=== PATIENT | female | born 1985 | race Asian ===

== ENCOUNTER 2024-03-05 10:52 | Emergency (ER) | payer OTHER ==
[2024-03-05 11:22] VITALS: BP 155/103; PULSE 98; RESP 18; TEMP 98.4; BMI 30.6
[2024-03-05 12:14] LABS: INR 0.94 (0.83-1.09); PROTHROMBIN TIME (PATIENT) 10.7 SEC (9.7-13.0)
[2024-03-05] MEDS ORDERED: ACETAMINOPHEN 500 MG TABLET (FP) ONE (12:23)
[2024-03-05 12:25] LABS: ALBUMIN 4.5 g/dl (3.4-5.0); ALK PHOS 85 U/L (45-117); ANION GAP 7 mmol/L (4-13); BILIRUBIN,TOTAL 0.4 mg/dl (0.2-1); CALCIUM 11.1 mg/dl (8.5-10.1); CHLORIDE 101 mmol/L (98-107); CO2 28 mmol/L (21-32); CREATININE 0.7 mg/dl (0.6-1.3); GLUCOSE,RANDOM 196 mg/dl (74-106); MAGNESIUM 2.1 mg/dL (1.8-2.4); PHOSPHOROUS 3.4 (2.5-4.9); POTASSIUM 4.3 mmol/L (3.5-5.1); SGOT/AST 12 U/L (15-37); SGPT/ALT 19 U/L (7-52); SODIUM 136 mmol/L (136-145); TOT PROT 7.6 g/dl (6.4-8.2)
[2024-03-05 12:27] LABS: HEMATOCRIT 35.4 % (32.4-45.2); HEMOGLOBIN 11.2 G/dL (10.7-15.3); MCH 25.3 pg (25.7-33.7); MCHC 31.6 g/dl (32.0-36.0); MEAN CELL VOLUME 80.2 fl (80-96); MEAN PLT VOLUME 9.3 fl (7.5-11.1); PLATELET COUNT 271.8 10^3/uL (134-434); RBC 4.42 10^6/uL (3.60-5.2); RDW 15.1 % (11.6-15.6); WHITE BLOOD COUNT 7.9 10^3/uL (4.0-10.8)
[2024-03-05] MEDS: ACETAMINOPHEN 500 MG TABLET (FP) PO ONE (12:35)
[2024-03-05 12:54] LABS: EPITHELIAL CELLS 0-5 /hpf; URINE HYALINE CAST 0-1 /lpf
[2024-03-05 13:14] LABS: PLATELET ESTIMATE ADEQUATE
[2024-03-05 14:08] LABS: IRON SERUM 49 ug/dL (50-175)
== END 2024-03-05 14:53 | disposition home or self-care (01) ==
LOC: FER 10:52
DX: N92.4 Excessive bleeding in the premenopausal period (principal); R10.30 Lower abdominal pain, unspecified
CPT/HCPCS: 36415; 76830-TC; 80053; 81003; 81015; 83540; 83735; 84100; 84703; 85027; 85610; 85730; 86850; 86900; 86901; 87086; 99284-25

== ENCOUNTER 2025-02-14 16:42 | Inpatient (IN) | payer OTHER ==
[2025-02-14 17:00] VITALS: BMI 31.8
[2025-02-14] MEDS ORDERED: ACETAMINOPHEN 325 MG TABLET (FP) ONE (17:55)
[2025-02-14] MEDS: ACETAMINOPHEN 500 MG TABLET (FP) PO ONE (18:24)
[2025-02-14 18:28] LABS: ABSOLUTE IMMATURE GRANULOCYTES 0.04 x10^3/uL (0.0-0.031); BASOPHILS # 0.03 x10^3/uL (0.01-0.08); EOSINOPHILS # 0.11 x10^3/uL (0.04-0.36); HEMATOCRIT 26.9 % (34.1-44.9); MCHC 29.7 g/dl (32.2-35.5); MEAN CELL VOLUME 71.9 fl (79.4-94.8); MEAN PLT VOLUME 10.5 fl (9.4-12.3); MONOCYTE # 0.73 x10^3/uL (0.24-0.86); MONOCYTE % 6.4 % (4.7-12.5); PLATELET COUNT 287 x10^3/uL (182-369); RDW 16.5 % (12.1-16.8)
[2025-02-14 18:36] LABS: POTASSIUM 3.9 mmol/L (3.5-5.1)
[2025-02-14 18:39] LABS: ALBUMIN 3.9 g/dl (3.4-5.0); BLOOD UREA NITROGEN 8.7 mg/dL (7-18); CALCIUM 10.8 mg/dL (8.5-10.1)
[2025-02-14 18:43] LABS: CREATININE 0.6 mg/dL (0.55-1.3)
[2025-02-14 18:44] LABS: BILIRUBIN,TOTAL 0.4 mg/dL (0.2-1); TOT PROT 7.4 g/dl (6.4-8.2)
[2025-02-14 19:04] LABS: INR 1.1 (0.83-1.09); PROTHROMBIN TIME (PATIENT) 12.1 SEC (9.7-13.0)
[2025-02-14] MEDS: ELECTROLYTE-148 SOLN 1,000 ML IV SCH (21:30)
[2025-02-14] MEDS: LABETALOL HCL 100 MG TABLET (FP) PO SCH (22:00)
[2025-02-15] MEDS: ACETAMINOPHEN 1000 MG/100 ML BAG IVPB ONE (00:30)
[2025-02-15] MEDS ORDERED: BUPIVACAINE HCL/PF 0.5% (5MG/ML) 10 ML VIAL ONE (08:58)
[2025-02-15] MEDS ORDERED: ONDANSETRON 4 MG/2 ML VIAL IVPUSH PRN ×2 (09:16→11:47)
[2025-02-15] MEDS ORDERED: MIDAZOLAM HCL 2 MG/2 ML SINGLE DOSE VIAL ONE ×2 (09:19→09:31)
[2025-02-15] MEDS ORDERED: SUGAMMADEX SODIUM 200 MG/2 ML VIAL ONE (09:20)
[2025-02-15] MEDS ORDERED: ROCURONIUM BROMIDE 50 MG/5 ML SYRINGE ONE ×2 (09:20→10:08)
[2025-02-15] MEDS: ceFAZolin SODIUM 1 GM VIAL IVPB ONE (09:40)
[2025-02-15] MEDS ORDERED: IBUPROFEN 800 MG/8 ML IJ IVPB PRN (11:47)
[2025-02-15] MEDS: INSULIN (NOVOLOG) ASPART 100 UNITS/ML 10ML VIAL SQ ONE (12:45)
[2025-02-15 12:46] LABS: ABSOLUTE IMMATURE GRANULOCYTES 0.18 x10^3/uL (0.0-0.031); BASOPHILS # 0.02 x10^3/uL (0.01-0.08); EOSINOPHIL % 0.2 % (0.7-5.8); EOSINOPHILS # 0.03 x10^3/uL (0.04-0.36); HEMATOCRIT 24.3 % (34.1-44.9); HEMOGLOBIN 7.2 g/dL (11.2-15.7); MCHC 29.6 g/dl (32.2-35.5); MEAN CELL VOLUME 72.1 fl (79.4-94.8); MEAN PLT VOLUME 10.6 fl (9.4-12.3); PLATELET COUNT 261 x10^3/uL (182-369); RDW 16.5 % (12.1-16.8)
[2025-02-15] MEDS: ELECTROLYTE-148 SOLN 1,000 ML IV SCH (16:40)
[2025-02-15] MEDS: INSULIN ASPART SLIDING SCALE (NOVOLOG) 1 VIAL SQ SCH (16:47)
[2025-02-15] MEDS: RHO(D) IMMUNE GLOBULIN 1,500 UNIT DISP.SYRIN IM ONE (17:46)
[2025-02-15] MEDS: IBUPROFEN 600 MG TABLET (FP) PO PRN (20:17)
[2025-02-15] MEDS: oxyCODONE HCL 5 MG TABLET PO PRN (21:27)
[2025-02-15] MEDS: LABETALOL HCL 100 MG TABLET (FP) PO SCH (21:27)
[2025-02-15] MEDS ORDERED: INSULIN (NOVOLOG) ASPART 100 UNITS/ML 10ML VIAL ONE (21:43)
[2025-02-15 22:41] VITALS: RESP 18
[2025-02-16] MEDS ORDERED: INSULIN (NOVOLOG) ASPART 100 UNITS/ML 10ML VIAL ONE ×2 (06:57→10:52)
[2025-02-16 08:13] LABS: ABSOLUTE IMMATURE GRANULOCYTES 0.11 x10^3/uL (0.0-0.031); BASOPHILS # 0.03 x10^3/uL (0.01-0.08); EOSINOPHIL % 0.4 % (0.7-5.8); EOSINOPHILS # 0.05 x10^3/uL (0.04-0.36); HEMATOCRIT 25.8 % (34.1-44.9); HEMOGLOBIN 7.8 g/dL (11.2-15.7); MCHC 30.2 g/dl (32.2-35.5); MEAN CELL VOLUME 74.6 fl (79.4-94.8); MEAN PLT VOLUME 11.2 fl (9.4-12.3); MONOCYTE # 1.09 x10^3/uL (0.24-0.86); MONOCYTE % 8.1 % (4.7-12.5); PLATELET COUNT 288 x10^3/uL (182-369)
[2025-02-16 08:23] LABS: BLOOD UREA NITROGEN 10.6 mg/dL (7-18)
[2025-02-16 08:26] LABS: CREATININE 0.7 mg/dL (0.55-1.3)
[2025-02-16 08:27] VITALS: BP 128/77; PULSE 94; TEMP 98
== END 2025-02-16 13:50 | disposition home or self-care (01) | DRG 819 ==
LOC: JER 16:42 → JERBED 17:31 → J3W 19:16
PROVIDERS: ADMIT Obstetrics & Gynecology; ATTEND Obstetrics & Gynecology
PROC: 0DNU4ZZ Release Omentum, Percutaneous Endoscopic Approach (ICD-10-PCS; 2025-02-15)
PROC: 10T24ZZ Resection of Products of Conception, Ectopic, Percutaneous Endoscopic Approach (ICD-10-PCS; principal; 2025-02-15 10:30)
DX: O00.80 Other ectopic pregnancy without intrauterine pregnancy (principal); K66.0 Peritoneal adhesions (postprocedural) (postinfection); D64.9 Anemia, unspecified; E11.9 Type 2 diabetes mellitus without complications; N93.9 Abnormal uterine and vaginal bleeding, unspecified; I10 Essential (primary) hypertension
CPT/HCPCS: 36415; 36430; 80048; 80053; 82962; 84702; 85025; 85610; 86850; 86900; 86901; 86922; 88305-TC; 93005; 93010; 94760; 96372; 99285-25; J0131; J2790; P9038; P9058